=== PATIENT | male | born 1960 | race Caucasian/White ===

== ENCOUNTER → 2016-10-21 | Outpatient (CLI) | payer BC ==
[~2016-10-21] MED LIST: APIX1TAB3 PO; METO25TA3 PO; OPTIRAY 320 IV PRN
--- NOTE | 2016-10-21 11:27 | DIAGNOSTIC IMAGING REPORT ---
CT PELVIS W/IV AND ORAL CONT (CT) CT DOSE: 803.50 mGy.cm CLINICAL HISTORY: PELVIC AND PERINEAL PAIN TECHNIQUE: The patient was scanned following administration of dilute oral contrast, and in a dynamic helical fashion during intravenous administration of 119 cc of Optiray 320. A dose lowering technique was utilized adhering to the principles of ALARA. COMPARISON STUDY: November 21, 2012 FINDINGS: The appendix appears normal. There is extensive sigmoid diverticulosis. No acute peridiverticular inflammatory changes are visualized. There is fat-containing bilateral inguinal hernias. There are no abnormal pelvic masses. There are no fluid collections to indicate an abscess. There is no pathologic adenopathy. There is no evidence of a perirectal abscess. IMPRESSION: 1. Bilateral fat-containing inguinal hernias 2. No acute inflammatory changes. No pathologic masses. No evidence of adenopathy. 3. Extensive sigmoid diverticulosis. No evidence of acute peridiverticular inflammatory change Electronically signed by: Eduar Flores M.D. 10/21/2016 11:26 AM Dictated Date/Time: 10/21/2016 11:22 AM
== END | disposition home or self-care (01) ==
LOC: C.CTS 10:58
PROVIDERS: ATTEND Family Medicine
DX: K40.90 Unilateral inguinal hernia, without obstruction or gangrene, not specified as recurrent (principal); K57.30 Diverticulosis of large intestine without perforation or abscess without bleeding

== ENCOUNTER 2020-01-06 08:53 | Inpatient (IN) ==
--- NOTE | 2020-01-06 09:28 | Emergency Department Note ---
History of Present Illness General Chief complaint: Shortness of Breath/Dyspnea Stated complaint: + COVID, INCREASED SOB, HX OF AFIB Time Seen by Provider: 01/06/20 09:04 History of Present Illness Maximum Pain Intensity: 5 This is a 59-year-old male that presents to the emergency department via private vehicle with complaints of "Covid positive, increased shortness of breath, history of A. fib". The patient notes that starting December 25 he began with a runny nose and dry cough. Patient notes persistence of symptoms and overall has been doing quite well. His symptoms seem to worsen therefore prompting arrival here in the ED last night where he underwent work-up to include that of a CTA of the chest. I did review the over read by radiologist in house. This conformed to the likely viral pneumonia that is likely from COVID-19. The patient did clarify that he has yet to had a COVID-19 positive result noting that he had a test on December 27 that was negative however is pending test results from a test this past Wednesday. The patient notes that he was here and feeling much better when he went home and then as he went to go to sleep he noted that he believes he went into A. fib which she has a history of noting that the heart felt like it was beating irregularly and was able to go to sleep. He then notes that he woke up gasping for air and felt like he was going to pass out and was concerned that he might . He took a double dose of metoprolol that he was prescribed that seemed to help the symptoms and then prompted arrival here today. Overall discomfort is a 5/10. He notes some mild burning in the chest and cough but no true chest pain. He has been compliant with his medications. Home Medications Medication Instructions Recorded Confirmed Type apixaban 5 mg tablet 5 mg PO BID #180 tab 07/18/19 01/06/20 Rx flecainide 100 mg tablet 100 mg PO Q12H #180 tab 07/20/19 01/06/20 Rx metoprolol succinate 50 mg PO BID 01/06/20 01/06/20 History Allergies Allergy/AdvReac Type Severity Reaction Status Date / Time chlorhexidine Allergy Intermediate RASH AND Verified 01/06/20 09:54 ITCHING latex Allergy Unknown RASH Verified 01/06/20 09:54 Past Med/Surg History Medical History (Updated 01/06/20 @ 16:36 by Andrew Villalpando PA-C) Diverticular disease Hypertension Obesity Paroxysmal A-fib Rare documented episodes. [id number] is 1. Per cardio 09/14/17 "With rare episodes of atrial fibrillation and no ability to predict when they might recur I do not think I need to see him regularly, however if he has recurrence I have advised him to contact us and we may want to reevaluate things. I therefore not scheduled him for routine follow-up visit." Surgical History History of cholecystectomy History of herniorrhaphy UMBILICAL History of herniorrhaphy Social History Smoking Status: Former smoker Tobacco Type: Cigarettes Second Hand Exposure: Yes (ON OCC AT WORK); Hx Alcohol Use: No Hx Substance Use: No Preferred Language: Zambian Communication Ability: Effective Senior Technical Project Manager Required: No Beliefs That Will Affect Care: None Current Living Situation: Spouse Feels Safe at Home: Yes Assistive Devices: Glasses Review of Systems A total of 10 systems reviewed and were otherwise negative Physical Exam Vital Signs Vital Signs - 24 hr 01/06/20 08:57 01/06/20 09:42 01/06/20 09:43 Temperature 36.7 C Temperature Source Oral Pulse Rate 82 Pulse Rate [Apical] Pulse Rate from SpO2 Sensor Pulse Rhythm [Apical] Respiratory Rate 18 Respiratory Effort / Characteristics Non-Labored Spontaneous Respiratory Depth Normal Respiratory Pattern Regular Blood Pressure 153/85 H Blood Pressure Mean 107 Blood Pressure Position Sitting Pulse Oximetry 93 93 94 Oxygen Delivery Method Room Air Room Air Room Air Oxygen Flow Rate Sepsis Recent Fever Within 48 Hours No Sepsis New/Unexplained Change in Mental Status N/A Sepsis Action Taken by Nursing No Action Required Oxygen Flow Rate - Titration Pulse Oximetry Post Tiitration 01/06/20 09:45 01/06/20 10:00 01/06/20 10:30 Temperature Temperature Source Pulse Rate 80 82 77 Pulse Rate [Apical] Pulse Rate from SpO2 Sensor 80 82 77 Pulse Rhythm [Apical] Respiratory Rate 26 H 18 23 Respiratory Effort / Characteristics Respiratory Depth Respiratory Pattern Blood Pressure 149/87 H 143/79 H 154/86 H Blood Pressure Mean 114 88 94 Blood Pressure Position Pulse Oximetry 91 90 92 Oxygen Delivery Method Room Air Room Air Room Air Oxygen Flow Rate Sepsis Recent Fever Within 48 Hours Sepsis New/Unexplained Change in Mental Status Sepsis Action Taken by Nursing Oxygen Flow Rate - Titration Pulse Oximetry Post Tiitration 01/06/20 11:00 01/06/20 11:30 01/06/20 11:54 Temperature Temperature Source Pulse Rate 77 78 Pulse Rate [Apical] Pulse Rate from SpO2 Sensor 77 78 Pulse Rhythm [Apical] Respiratory Rate 21 26 H Respiratory Effort / Characteristics Respiratory Depth Respiratory Pattern Blood Pressure 142/78 H 143/91 H Blood Pressure Mean 92 104 Blood Pressure Position Pulse Oximetry 92 91 90 Oxygen Delivery Method Nasal Cannula Oxygen Flow Rate 0 Sepsis Recent Fever Within 48 Hours Sepsis New/Unexplained Change in Mental Status Sepsis Action Taken by Nursing Oxygen Flow Rate - Titration 2 Pulse Oximetry Post Tiitration 94 01/06/20 12:00 01/06/20 12:01 01/06/20 12:30 Temperature Temperature Source Pulse Rate 74 73 74 Pulse Rate [Apical] Pulse Rate from SpO2 Sensor 74 73 74 Pulse Rhythm [Apical] Respiratory Rate 22 17 24 Respiratory Effort / Characteristics Respiratory Depth Respiratory Pattern Blood Pressure 137/104 H 149/90 H Blood Pressure Mean 113 95 Blood Pressure Position Pulse Oximetry 93 94 92 Oxygen Delivery Method Nasal Cannula Nasal Cannula Nasal Cannula Oxygen Flow Rate 2 2 2 Sepsis Recent Fever Within 48 Hours Sepsis New/Unexplained Change in Mental Status Sepsis Action Taken by Nursing Oxygen Flow Rate - Titration Pulse Oximetry Post Tiitration 01/06/20 12:31 01/06/20 13:00 01/06/20 13:33 Temperature Temperature Source Pulse Rate 74 74 Pulse Rate [Apical] Pulse Rate from SpO2 Sensor 74 74 80 Pulse Rhythm [Apical] Respiratory Rate 22 21 20 Respiratory Effort / Characteristics Respiratory Depth Respiratory Pattern Blood Pressure 146/85 H Blood Pressure Mean 90 Blood Pressure Position Pulse Oximetry 92 93 Oxygen Delivery Method Nasal Cannula Oxygen Flow Rate 2 Sepsis Recent Fever Within 48 Hours Sepsis New/Unexplained Change in Mental Status Sepsis Action Taken by Nursing Oxygen Flow Rate - Titration Pulse Oximetry Post Tiitration 01/06/20 13:49 01/06/20 13:50 01/06/20 14:00 Temperature Temperature Source Pulse Rate 76 Pulse Rate [Apical] 78 Pulse Rate from SpO2 Sensor 77 Pulse Rhythm [Apical] Regular Respiratory Rate 18 Respiratory Effort / Characteristics Respiratory Depth Respiratory Pattern Blood Pressure 173/93 H Blood Pressure Mean 106 Blood Pressure Position Pulse Oximetry 88 L 94 93 Oxygen Delivery Method Room Air Nasal Cannula Oxygen Flow Rate 2 Sepsis Recent Fever Within 48 Hours Sepsis New/Unexplained Change in Mental Status Sepsis Action Taken by Nursing Oxygen Flow Rate - Titration Pulse Oximetry Post Tiitration 01/06/20 14:30 01/06/20 14:31 Temperature Temperature Source Pulse Rate 78 79 Pulse Rate [Apical] Pulse Rate from SpO2 Sensor 77 79 Pulse Rhythm [Apical] Respiratory Rate 23 19 Respiratory Effort / Characteristics Respiratory Depth Respiratory Pattern Blood Pressure 126/78 Blood Pressure Mean 90 Blood Pressure Position Pulse Oximetry 92 92 Oxygen Delivery Method Nasal Cannula Nasal Cannula Oxygen Flow Rate 2 2 Sepsis Recent Fever Within 48 Hours Sepsis New/Unexplained Change in Mental Status Sepsis Action Taken by Nursing Oxygen Flow Rate - Titration Pulse Oximetry Post Tiitration VITAL SIGNS - Vital signs and nursing notes were reviewed. Stable and afebrile. GENERAL -59-year-old male appearing his stated age who is in no acute distress. Communicates well with provider and answers questions appropriately. SKIN - Without rashes. No meningeal or petechial rash. HEAD - NC/AT. NECK - Neck with FROM. Supple to palpation. No lymphadenopathy noted. No nuchal rigidity. LUNGS - Chest wall symmetric without accessory muscle use, intercostals retractions, or central cyanosis. Normal vesicular breath sounds CTA B/L. No wheezes, rales, or rhonchi appreciated. CARDIAC - RRR with S1/S2. No murmur, rubs, or gallops appreciated. ABDOMEN - Abdominal contour normal without pulsations or visible masses. BS normoactive all four quadrants. No tenderness, palpable masses, hepatospleno megaly, or ascites noted. EXTREMITIES - No clubbing or peripheral cyanosis. No pretibial edema present. +5/5 strength noted in UE/LE bilaterally. NEUROLOGIC - Cranial nerves II through XII grossly intact. Sensory intact to light touch throughout. PSYCH - A&O, and cooperates fully with examiner. Pt is very pleasant and interacts well with examiner. Course Administered Medications Discontinued Medications Dexamethasone (Dexamethasone Sod Inj 10 Mg/Ml Vial) 6 mg IV NOW ONE Stop: 01/06/20 11:37 Last Admin: 01/06/20 11:55 Dose: 6 mg Documented by: [id number] Hydralazine HCl (Hydralazine Hcl 20 Mg/Ml Vial) 5 mg IV NOW STA Stop: 01/06/20 15:16 Last Admin: 01/06/20 16:07 Dose: 5 mg Documented by: [id number] Potassium Chloride (Potassium Chloride Crtab 20 Meq Tabcr) 20 meq PO NOW STA Stop: 01/06/20 15:12 Last Admin: 01/06/20 16:06 Dose: 20 meq Documented by: [id number] Medical Decision Making Laboratory Data Result diagrams: 01/06/20 09:40 01/06/20 09:40 Lab Results 01/06/20 01/06/20 01/06/20 Range/Units 09:40 09:40 11:56 WBC 4.08 L (4.8-10.8) K/uL RBC 4.83 (4.7-6.1) M/uL Hgb 15.1 (14.0-18.0) g/dL Hct 44.9 (42-52) % MCV 93.0 (80-100) fL MCH 31.3 (25-34) pg MCHC 33.6 (32-36) g/dL RDW Std Deviation 45.9 (36.4-46.3) fL RDW Coeff of Victor Hugo 13.4 (11.5-14.5) % Plt Count 146 (130-400) K/uL MPV 9.7 (7.4-10.4) fL Immature Gran % (Auto) 0.2 % Neut % (Auto) 72.4 % Lymph % (Auto) 19.1 % Wilkinson % (Auto) 8.1 % Eos % (Auto) 0.2 % Baso % (Auto) 0.0 % Neut # (Auto) 2.95 (1.4-6.5) K/uL Lymph # (Auto) 0.78 L (1.2-3.4) K/uL Wilkinson # (Auto) 0.33 (0.11-0.59) K/uL Eos # (Auto) 0.01 (0-0.5) K/uL Baso # (Auto) 0.00 (0-0.2) K/uL Immature Gran # (Auto) 0.01 (0.00-0.02) K/uL Sodium 140 (136-145) mmol/L Potassium 3.4 L (3.5-5.1) mmol/L Chloride 109 H (98-107) mmol/L Carbon Dioxide 25 (21-32) mmol/L Anion Gap 6.0 (3-11) BUN 17 (7-18) mg/dl Creatinine 0.88 (0.6-1.4) mg/dl Est Cr Clr Drug Dosing 128.9 ml/min Est GFR ( Amer) 110.5 Est GFR (Non-Af Amer) 95.4 BUN/Creatinine Ratio 19.5 (10-20) Glucose 121 H (70-99) mg/dl Calcium 8.8 (8.5-10.1) mg/dl Magnesium 1.9 (1.8-2.4) mg/dl Total Bilirubin 0.7 (0.2-1) mg/dl AST 81 H (15-37) U/L ALT 122 H (12-78) U/L Alkaline Phosphatase 109 (45-117) U/L Troponin I < 0.015 (0-0.045) ng/ml Total Protein 7.2 (6.4-8.2) gm/dl Albumin 3.5 (3.4-5.0) gm/dl Globulin 3.7 (2.5-4.0) gm/dl Albumin/Globulin Ratio 0.9 (0.9-2) TSH 1.910 (0.300-4.500) uIu/ml COVID-19 Eval [email or web address] SARS-CoV-2, RNA, NAAT (NEGATIVE) 01/06/20 Range/Units 11:56 WBC (4.8-10.8) K/uL RBC (4.7-6.1) M/uL Hgb (14.0-18.0) g/dL Hct (42-52) % MCV (80-100) fL MCH (25-34) pg MCHC (32-36) g/dL RDW Std Deviation (36.4-46.3) fL RDW Coeff of Victor Hugo (11.5-14.5) % Plt Count (130-400) K/uL MPV (7.4-10.4) fL Immature Gran % (Auto) % Neut % (Auto) % Lymph % (Auto) % Wilkinson % (Auto) % Eos % (Auto) % Baso % (Auto) % Neut # (Auto) (1.4-6.5) K/uL Lymph # (Auto) (1.2-3.4) K/uL Wilkinson # (Auto) (0.11-0.59) K/uL Eos # (Auto) (0-0.5) K/uL Baso # (Auto) (0-0.2) K/uL Immature Gran # (Auto) (0.00-0.02) K/uL Sodium (136-145) mmol/L Potassium (3.5-5.1) mmol/L Chloride (98-107) mmol/L Carbon Dioxide (21-32) mmol/L Anion Gap (3-11) BUN (7-18) mg/dl Creatinine (0.6-1.4) mg/dl Est Cr Clr Drug Dosing ml/min Est GFR ( Amer) Est GFR (Non-Af Amer) BUN/Creatinine Ratio (10-20) Glucose (70-99) mg/dl Calcium (8.5-10.1) mg/dl Magnesium (1.8-2.4) mg/dl Total Bilirubin (0.2-1) mg/dl AST (15-37) U/L ALT (12-78) U/L Alkaline Phosphatase (45-117) U/L Troponin I (0-0.045) ng/ml Total Protein (6.4-8.2) gm/dl Albumin (3.4-5.0) gm/dl Globulin (2.5-4.0) gm/dl Albumin/Globulin Ratio (0.9-2) TSH (0.300-4.500) uIu/ml COVID-19 Eval Order SARS-CoV-2, RNA, NAAT POSITIVE A* (NEGATIVE) Imaging Data Radiologist's Impression: CT angio chest PE protocol CT DOSE: 769.10 mGy.cm HISTORY: 59 years-old Male with PE. Acute shortness of breath. COVID Positive. TECHNIQUE: Multiple CTA images of the chest were obtained after the intravenous administration of 118 ml Optiray 320. Coronal and sagittal MIPS were obtained from the axial data set and were submitted for review. All measurements were obtained according to NASCET criteria. A dose lowering technique was utilized adhering to the principles of ALARA. COMPARISON: Chest radiograph of same day, CT chest 10/06/2007 FINDINGS: CTA: Mild cardiomegaly. There is no pericardial effusion. No thoracic aortic aneurysm or dissection. Patency of the imaged great vessels. The pulmonary artery is opacified to the level of the subsegmental branches and demonstrates no filling defects to suggest thromboembolic disease. CT CHEST: Unremarkable thyroid. Mildly enlarged AP window lymph node, 12 mm. Prominent paratracheal and subcarinal lymph nodes measure up to 9 mm, likely reactive. There is no pneumothorax or pleural effusion. No overt pulmonary edema. 6 mm solid nodule of the right middle lobe, image 139 series 4 previously measured 4 mm on the 2018 exam. This is likely benign. Patchy bilateral groundglass opacities are noted within all lobes bilaterally. These are noted in a somewhat mid lung zone and peripheral distribution. Mild linear subsegmental bibasilar atelectasis. No suspicious pulmonary nodules or masses. The central airways are patent. Cholecystectomy. Hepatic steatosis. Indeterminate ill-defined 9 mm hypodensity of the right hepatic lobe. Unremarkable soft tissues. Bones appear intact. No acute fracture. IMPRESSION: 1. No evidence of pulmonary thromboembolic disease. 2. Patchy multilobar groundglass densities are compatible with a nonspecific infectious or inflammatory pneumonitis, likely acute viral pneumonia considering patient's COVID Positive status. 3. Mild mediastinal adenopathy, likely reactive. 4. Hepatic steatosis. 5. Cholecystectomy. ACT 112: Negative or not required by law. The above report was generated using voice recognition software. It may contain grammatical, syntax or spelling errors. Electronically signed by: Derrell Ray M.D. 01/06/2020 9:17 AM MDM Narrative Patient was seen and evaluated as above in room C06. Review was performed of nursing notes and vital signs. I did review pertinent previous visits and patient history. After obtaining a thorough history and physical examination the above work up was performed. He presents to us today with symptoms suspicious for that of COVID-19 and was recently here in the ED for evaluation of the symptoms. The patient did undergo a CTA of the chest and this was read initially by stat rad and I do have the report as above by the in-house radiology that was just read. I do not believe that repeating a CT at this time would be of any benefit. There is no evidence of PE. There is patchy multilobar groundglass densities are compatible with a nonspecific infectious or inflammatory pneumonitis, likely acute viral pneumonia considering patient's Covid status. Although the patient has yet to have a positive COVID-19 test clinically I would suspect that his symptoms are from such. The CTA also does appear consistent with likely the viral pneumonia on my examination. The patient notes that the main reason he is here is because when he went to bed after being discharged here and he felt that he was in A. fib which is rare for him and then when he woke up he states that the heart rate was erratic and he notes that he was gasping for breath, felt dizzy and thought he might pass out and he was worried about dying therefore prompting arrival here. The patient is anticoagulated on apixaban, and for the A. fib is on flecainide and metoprolol. As reported above, he did take a double dose of metoprolol which greatly seem to improve his symptoms and now he notes that he is feeling much better but w anted to be evaluated. Vital signs are stable at this time. He is nontoxic on examination. The patient was evaluated by the hospitalist noting he does not feel comfortable going home secondary to his symptoms. Patient is worried about going home. Patient feels safe in his home but not with his current symptoms. I respect this and discussed this with the hospitalist. The initial plan by the hospitalist was for discharge however when I went to discuss this with the patient he was noted to be hypoxic 87% on room air. I placed him back on oxygen and discussed this with the hospitalist who will admit the patient further evaluation and management. I did start the patient on IV dexamethasone. Please refer to further documentation regarding his stay. Patient was seen during a period of high volume and acuity during the COVID-19 pandemic. Case was discussed with the attending physician. EKG #1 reveals normal sinus rhythm at a rate of 80 bpm. There is no ST elevation. T WI noted in lead III as well as V1 and flattening noted in V3. No significant change was found compared to previous EKG. EKG #2 reveals what appears to be a sinus rhythm with frequent PAC/PVC. This is at a rate of [address] bpm. QTc 520[address] No ST elevation. An order was placed for continuous cardiac monitoring. The monitor shows a rate of 90 with sinus rhythm. I attest that I have personally reviewed the patient medication list. GCS: 15 In the evaluation and treatment of this patient the following differential diagnoses were entertained: Pneumonia, [place], PE, pericarditis, COVID-19, among others. Impression & Plan COVID-19, Racing heart beat, Acute dyspnea, Pneumonia due to COVID-19 virus Discharge Plan Visit Data Chief Complaint: Shortness of Breath/Dyspnea Stated Complaint: + COVID, INCREASED SOB, HX OF AFIB ED Provider: Eugene Boo ED Midlevel Provider: Andrew Villalpando Discharge Problem: COVID-19, Racing heart beat, Acute dyspnea, Pneumonia due to COVID-19 virus Patient Disposition: Admitted As Inpatient Condition: Good
[2020-01-06 09:52] LABS: Eosinophils # (auto) 0.01 K/uL (0-0.5); Eosinophils % (auto) 0.2 %; Hematocrit (blood only) 44.9 % (42-52); Hemoglobin 15.1 g/dL (14.0-18.0); Immature Granulocytes # (auto) 0.01 K/uL (0.00-0.02); Immature Granulocytes % (auto) 0.2 %; Lymphocytes # (auto) 0.78 K/uL (1.2-3.4); Lymphocytes % (auto) 19.1 %; Mean Corpuscular Hemoglobin 31.3 pg (25-34); Mean Corpuscular Hgb Conc 33.6 g/dL (32-36); Mean Platelet Volume 9.7 fL (7.4-10.4); Monocytes # (auto) 0.33 K/uL (0.11-0.59); Monocytes % (auto) 8.1 %; Neutrophils # (auto) 2.95 K/uL (1.4-6.5); Neutrophils % (auto) 72.4 %; Platelet Count 146 K/uL (130-400); RDW Coefficient of Variation 13.4 % (11.5-14.5); RDW Standard Deviation 45.9 fL (36.4-46.3); Red Blood Count 4.83 M/uL (4.7-6.1); White Blood Count 4.08 K/uL (4.8-10.8)
[2020-01-06 10:08] LABS: Alanine Aminotransferase 122 U/L (12-78); Albumin Level 3.5 gm/dl (3.4-5.0); Aspartate Aminotransferase 81 U/L (15-37); BUN Creatinine Ratio 19.5 (10-20); Blood Urea Nitrogen 17 mg/dl (7-18); Calcium 8.8 mg/dl (8.5-10.1); Carbon Dioxide 25 mmol/L (21-32); Chloride 109 mmol/L (98-107); Creatinine Clr Calc Pharmacy 128.9 ml/min; Est GFR (African American) 110.5; Est GFR (Non-African American) 95.4; Glucose 121 mg/dl (70-99); Magnesium 1.9 mg/dl (1.8-2.4); Potassium 3.4 mmol/L (3.5-5.1); Sodium 140 mmol/L (136-145)
[2020-01-06 10:19] LABS: Albumin Globulin Ratio 0.9 (0.9-2); Alkaline Phosphatase 109 U/L (45-117); Bilirubin,Total 0.7 mg/dl (0.2-1); Globulin 3.7 gm/dl (2.5-4.0); Total Protein 7.2 gm/dl (6.4-8.2); Troponin I < 0.015 ng/ml (0-0.045)
--- NOTE | 2020-01-06 11:35 | Electrocardiogram Report ---
Test Reason : Blood Pressure : / mmHG Vent. Rate : 080 BPM Atrial Rate : 080 BPM P-R Int : 196 ms QRS Dur : 112 ms QT Int : 404 ms P-R-T Axes : 027 015 -05 degrees QTc Int : 465 ms Normal sinus rhythm Old Inferior infarct (cited on or before 06-JAN-2020) Poor R wave progression, consider anterior NM vs. lead placement vs. LVH Abnormal ECG When compared with ECG of 06-JAN-2020 00:16, No significant change was found Confirmed by Luis Felipe Hoover [id number] on 01/06/2020 11:34:43 AM Referred By: REFERRED SELF Confirmed By:Luis Felipe Hoover
[2020-01-06] MEDS ORDERED: DEXAMETHASONE SOD INJ 10 MG/ML VIAL IV ONE (11:36)
--- NOTE | 2020-01-06 12:24 | History & Physical Report ---
Date of Service January 06, 2020 Assessment & Plan (1) Pneumonia due to COVID-19 virus: Dexamethasone 6mg IV daily Initially planned to send patient home as borderline hypoxia and episodes of shortness of breath more likely related to atrial fibrillation. However became more hypoxic in the ER therefore patient admitted overnight, if still significantly hypoxic could consider remdesivir and convalescent plasma although approximately 10 days from original symptoms at this time. (2) Hypoxia: Aim O2 sats > 94% (3) Paroxysmal A-fib: Increase metoprolol succinate 50 -> 100mg PO BID Continue flecainide Discontinue albuterol as this triggered his episodes overnight. Consult cardiology - discussed case with Dr Hoover (4) Hypertension: Continue flecainide and increased dose of metoprolol succinate as above and monitor for hypotension. (5) Obesity: (6) Elevated LFTs: Hepatic steatosis on CT. ?secondary to COVID-19. Stable since last night. Monitor with AM labs Unknown baseline. Prior history of chronic cholecystitis but now had cholecystectomy - no RUQ pain on exam. (7) DVT prophylaxis: Apixaban 5 mg p.o. twice daily Admission and Anticipated Discharge Date Admission Date: 01/06/2020 History of Present Illness Primary Care Provider: Thomas Gillespie MD Gilles Dowell is a 59-year-old male who presents to the ER with increased shortness of breath after recent diagnosis of Covid positive last night. He has been symptomatic for approximately 10 days although much worse over the last 4 days. Approximately 7 days ago he noticed fevers and chills which have been recurring and worse at night. He has lost his taste and smell for the last 6 days. Mild nasal congestion. Initially had a headache but this resolved 2 days ago. No abdominal pain, chest pain (outside of coughing, burning when he coughs), diarrhea, sore throat. He presented to the ER last night with mild wheezing and shortness of breath. Subsequent SARS-CoV-2 PCR was positive. He was discharged home from the emergency room with borderline O2 sats of 93%. He was given an albuterol inhaler which he reports did not help but may have triggered his atrial fibrillation which caused him to feel very short of breath this morning. Due to increased shortness of breath with associated palpitations he decided to return to the ER today. Currently he is not feeling short of breath after doubling his metoprolol dose this morning he is now back into normal sinus rhythm. He has noticed his atrial fibrillation has been more prominent during his current illness. No adjustments to his medications will be made except for this morning taking an extra dose of metoprolol. When he is outside his atrial fibrillation episodes, such as currently in the ER he does not feel short of breath. No orthopnea or PND. Initially plan to discharge home as shortness of breath episodes appear to correlate with his atrial fibrillation. Discussed with Dr. Hoover and will increase his metoprolol dose. However while in the emergency room his O2 sats decreased from borderline 93% to 88% on room air and the patient did not feel comfortable going home. Given his current hypoxia he meets criteria to be admitted in hospital. Allergies Allergy/AdvReac Type Severity Reaction Status Date / Time chlorhexidine Allergy Intermediate RASH AND Verified 01/06/20 09:54 ITCHING latex Allergy Unknown RASH Verified 01/06/20 09:54 Home Medications Medication Instructions Recorded Confirmed Type apixaban 5 mg tablet 5 mg PO BID #180 tab 07/18/19 01/06/20 Rx flecainide 100 mg tablet 100 mg PO Q12H #180 tab 07/20/19 01/06/20 Rx metoprolol succinate 50 mg PO BID 01/06/20 01/06/20 History Past Med/Surg History Medical History (Updated 01/07/20 @ 10:50 by Dave Polk MD) Diverticular disease Hypertension Obesity Paroxysmal A-fib Rare documented episodes. [id number] is 1. Per cardio 09/14/17 "With rare episodes of atrial fibrillation and no ability to predict when they might recur I do not think I need to see him regularly, however if he has recurrence I have advised him to contact us and we may want to reevaluate things. I therefore not scheduled him for routine follow-up visit." Surgical History History of cholecystectomy History of herniorrhaphy UMBILICAL History of herniorrhaphy Social History Smoking Status: Former smoker Tobacco Type: Cigarettes Second Hand Exposure: Yes (ON OCC AT WORK); Hx Alcohol Use: No Hx Substance Use: No Preferred Language: Kiswahili Communication Ability: Effective Junior Mechanical Engineer Required: No Beliefs That Will Affect Care: None Current Living Situation: Spouse Current Living Situation Comment: with Other Information That Helps Us Care for You: No Feels Safe at Home: Yes Safety Concerns: Feels Safe At This Time Assistive Devices: Glasses and Oxygen - Continuous Review of Systems Review of Systems: All systems reviewed & are unremarkable except as noted in HPI & below Physical Exam Constitutional: well developed and + obese; + not well nourished and no acute distress Eyes: + anicteric sclerae; normal pupil size Respiratory: normal respiratory effort Auscultation: lungs clear to auscultation bilaterally (Anteriorly) and + crackles (Bilaterally posteriorly); no diminished lung sounds, no rales, no rhonchi and no wheezes Cardiovascular: Rate/Rhythm: regular rate and regular rhythm Heart Sounds: no murmur Vessels: no JVD Extremities: normal capillary refill; no calf tenderness and no pedal edema Gastrointestinal (Abdomen): normal bowel sounds, soft, nontender, no hepatosplenomegaly Musculoskeletal: no cyanosis or clubbing, extremities motor strength 5/5 Skin: no rashes, warm and dry Neurologic: moves all extremities and awake; not confused Psychiatric: A+Ox3, euthymic affect Genitourinary: no CVA tenderness Results & Data Results & Data ([facility]) Vital Signs (Past 12 Hours) Vital Signs Temp Pulse Resp BP Pulse Ox 01/06/20 11:54 90 01/06/20 11:30 78 26 H 143/91 H 91 01/06/20 11:00 77 21 142/78 H 92 01/06/20 10:30 77 23 154/86 H 92 01/06/20 10:00 82 18 143/79 H 90 01/06/20 09:45 80 26 H 149/87 H 91 01/06/20 09:43 94 01/06/20 09:42 93 01/06/20 08:57 36.7 C 82 18 153/85 H 93 Diagnostic Findings XR chest 1V portable IMPRESSION: Patchy bilateral peripheral opacities are compatible with a nonspecific infectious or inflammatory pneumonitis such as viral pneumonia. CT angio chest PE protocol IMPRESSION: 1. No evidence of pulmonary thromboembolic disease. 2. Patchy multilobar groundglass densities are compatible with a nonspecific infectious or inflammatory pneumonitis, likely acute viral pneumonia considering patient's COVID Positive status. 3. Mild mediastinal adenopathy, likely reactive. 4. Hepatic steatosis. 5. Cholecystectomy. Medications Administered ER medications given: Dexamethasone 6 mg IV ECG Indication: SOB/dyspnea Rate (beats per minute): 89 Rhythm: normal sinus Findings: + PAC Comparison ECG Date: from (January 06, 2020) Change: the following changes noted (PACs present) Code Status & VTE Plan Code Status Full VTE Prophylaxis Plan VTE Prophylaxis will be ordered: Yes PG Care Time/CCT Total # of Minutes Spent Total Time Spent: 70 Total Time Spent with Patient: Total time spent is greater than 50% in coordination of care (as documented) at patient's floor/unit and/or counseling patient: Coding Level of Care Code 36113 Initial Inpt Care Lvl 3 Diagnoses Pneumonia due to COVID-19 virus U07.1; J12.89 Hypoxia R09.02 Paroxysmal A-fib I48.0 Hypertension I10 Obesity E66.9 Elevated LFTs R79.89 DVT prophylaxis Z29.9
[2020-01-06] MEDS ORDERED: POTASSIUM CHLORIDE CRTAB 20 MEQ TABCR PO STA (15:11)
[2020-01-06] MEDS ORDERED: hydrALAZINE HCL 20 MG/ML VIAL IV STA (15:15)
[2020-01-06] MEDS ORDERED: hydrALAZINE HCL 20 MG/ML VIAL IV PRN (18:30)
[2020-01-06] MEDS ORDERED: ACETAMINOPHEN 325 MG TAB PO PRN (18:30)
[2020-01-06] MEDS: METOPROLOL SUCC 50MG EXT REL TAB PO SCH (20:11)
[2020-01-06] MEDS: FLECAINIDE ACETATE 100 MG TABLET PO SCH (20:30)
[2020-01-06] MEDS: APIXABAN 5 MG TABLET PO SCH (20:30)
[2020-01-07] MEDS: METOPROLOL SUCC 50MG EXT REL TAB PO SCH (07:15)
[2020-01-07] MEDS: FLECAINIDE ACETATE 100 MG TABLET PO SCH (07:15)
[2020-01-07] MEDS: APIXABAN 5 MG TABLET PO SCH (07:15)
[2020-01-07 08:14] LABS: Hematocrit (blood only) 46.1 % (42-52); Hemoglobin 15.5 g/dL (14.0-18.0); Lymphocytes % (auto) 12.9 %; Mean Corpuscular Hemoglobin 31.2 pg (25-34); Mean Corpuscular Hgb Conc 33.6 g/dL (32-36); Mean Corpuscular Volume 92.8 fL (80-100); Monocytes # (auto) 0.39 K/uL (0.11-0.59); Monocytes % (auto) 6.3 %; Neutrophils # (auto) 4.99 K/uL (1.4-6.5); Neutrophils % (auto) 80.8 %; Platelet Count 168 K/uL (130-400); RDW Coefficient of Variation 13.3 % (11.5-14.5); RDW Standard Deviation 45.3 fL (36.4-46.3); Red Blood Count 4.97 M/uL (4.7-6.1); White Blood Count 6.18 K/uL (4.8-10.8)
[2020-01-07 08:28] LABS: D Dimer 230 ug/L FEU (0-500)
[2020-01-07 08:31] LABS: Alanine Aminotransferase 120 U/L (12-78); Albumin Level 3.4 gm/dl (3.4-5.0); Aspartate Aminotransferase 66 U/L (15-37); BUN Creatinine Ratio 28.8 (10-20); Blood Urea Nitrogen 25 mg/dl (7-18); C Reactive Protein 5.23 mg/dl (0-0.29); Calcium 9.3 mg/dl (8.5-10.1); Carbon Dioxide 24 mmol/L (21-32); Chloride 107 mmol/L (98-107); Creatinine Clr Calc Pharmacy 129.9 ml/min; Est GFR (African American) 111.6; Est GFR (Non-African American) 96.3; Glucose 124 mg/dl (70-99); Potassium 3.6 mmol/L (3.5-5.1); Sodium 139 mmol/L (136-145)
[2020-01-07 08:36] LABS: Albumin Globulin Ratio 0.9 (0.9-2); Alkaline Phosphatase 115 U/L (45-117); Bilirubin,Total 0.8 mg/dl (0.2-1); Creatine Kinase 140 U/L (39-308); Globulin 3.7 gm/dl (2.5-4.0); Total Protein 7.1 gm/dl (6.4-8.2); Troponin I < 0.015 ng/ml (0-0.045)
--- NOTE | 2020-01-07 08:55 | Electrocardiogram Report ---
Test Reason : Blood Pressure : / mmHG Vent. 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 lead placement vs. LVH Abnormal ECG When compared with ECG of 06-JAN-2020 09:36, Aberrantly conducted PACs now present Confirmed by Luis Felipe oHover ([id number]) on 01/07/2020 8:54:54 AM Referred By: REFERRED SELF Confirmed By:Luis Felipe Hoover
[2020-01-07] MEDS ORDERED: dexAMETHasone 6 MG in SYRINGE 0 ML IV SCH (09:00)
--- NOTE | 2020-01-07 14:27 | Discharge Summary ---
Date of Service January 07, 2020 Admission HPI Per Admitting Provider Gilles Dowell is a 59-year-old male who presents to the ER with increased shortness of breath after recent diagnosis of Covid positive last night. He has been symptomatic for approximately 10 days although much worse over the last 4 days. Approximately 7 days ago he noticed fevers and chills which have been recurring and worse at night. He has lost his taste and smell for the last 6 days. Mild nasal congestion. Initially had a headache but this resolved 2 days ago. No abdominal pain, chest pain (outside of coughing, burning when he coughs), diarrhea, sore throat. He presented to the ER last night with mild wheezing and shortness of breath. Subsequent SARS-CoV-2 PCR was positive. He was discharged home from the emergency room with borderline O2 sats of 93%. He was given an albuterol inhaler which he reports did not help but may have triggered his atrial fibrillation which caused him to feel very short of breath this morning. Due to increased shortness of breath with associated palpitations he decided to return to the ER today. Currently he is not feeling short of breath after doubling his metoprolol dose this morning he is now back into normal sinus rhythm. He has noticed his atrial fibrillation has been more prominent during his current illness. No adjustments to his medications will be made except for this morning taking an extra dose of metoprolol. When he is outside his atrial fibrillation episodes, such as currently in the ER he does not feel short of breath. No orthopnea or PND. Initially plan to discharge home as shortness of breath episodes appear to correlate with his atrial fibrillation. Discussed with Dr. Hoover and will increase his metoprolol dose. However while in the emergency room his O2 sats decreased from borderline 93% to 88% on room air and the patient did not feel comfortable going home. Given his current hypoxia he meets criteria to be admitted in hospital. Principal Diagnosis Atrial fibrillation with RVR Discharge Exam Constitutional WD/WN, vitals as above + overweight Eyes PERRL, conjunctivae normal, anicteric sclerae ENMT external ear and nose normal, oropharynx normal Neck trachea midline, no thyromegaly Respiratory normal respiratory effort, lungs clear to auscultation Cardiovascular RRR, no murmur, no edema Gastrointestinal (Abdomen) normal bowel sounds, soft, nontender, no hepatosplenomegaly Musculoskeletal no cyanosis or clubbing, extremities motor strength 5/5 Skin no rashes, warm and dry Neurologic patellar DTR's 2+ bilat, sensation intact and PERRL, EOMI, accommodation nl, no face palsy, no dysarthria Psychiatric A+Ox3, euthymic affect Lymphatic no cervical or axillary lymphadenopathy Discharge Data Allergies Allergy/AdvReac Type Severity Reaction Status Date / Time chlorhexidine Allergy Intermediate RASH AND Verified 01/06/20 09:54 ITCHING latex Allergy Unknown RASH Verified 01/06/20 09:54 Consultations 01/06/20 11:36 ED Decision to Admit Stat 01/06/20 18:30 Consult Cardiology Routine Hospital Course (1) Pneumonia due to COVID-19 virus: Dexamethasone 6mg IV daily, responded well, no hypoxia all day, 92-94% on room air no need for Remdesivir or plasma will discharge home on several more days of dexamethasone to limit inflammation, cough suppressant instructed to get rest, stay well nourished and well hydrated, remain in quarantine for 7 days (2) Hypoxia: resolved quickly saturations 92-94% on room air the day of discharge (3) Paroxysmal A-fib: Increase metoprolol succinate 50 -> 100mg PO BID Continue flecainide 100mg BID Discontinue albuterol as this triggered his episodes overnight. discussed case with Dr Hoover recommend follow up with Dr. Chaves in 2 weeks (4) Hypertension: BP stable, slightly elevated on increased dose of Toprol (5) Obesity: (6) Elevated LFTs: minimal elevation, could be related to COVID 19 can follow as outpatient Total Time Total Time Spent Total Time Spent (In Minutes): 32 minutes Total Time Includes: Examination of the Patient, Discharge Planning, Medication Reconciliation and Communication With Other Providers (discussed with Dr. Nathan becerra) Discharge Plan Discharge Items Patient Disposition: Home - Self-Care Reason For Visit: COVID-19 PNA, HYPOXIA,PAROXYSMAL AFIB Discharge Diagnosis: COVID 19 pneumonia Atrial fibrillation with rapid response Condition on Discharge: Good Activity: Resume your previous activity Non-emergency contact: Primary Care Provider and Vehicle Service Attendant Call non-emergency contact if: you have any medication questions and your symptoms worsen Follow-up/Referrals: Goran Chaves MD [Physician] - 01/11/20 1:00 pm (two weeks TELE-HEALTH APPT WITH DR. CHAVES) Thomas Gillespie MD [Primary Care Provider] - 01/09/20 3:40 pm (one week TELE- HEALTH APPOINTMENT WITH DR. MANUEL) Diet: Regular Addtl Attending Provider Instructions: Medications: - TOPROL: dose increased to 100mg twice a day for rate control - DEXAMETHASONE: 6mg daily for 4 more days - CODEINE: take 10mL as needed every 6 hours for cough suppression Atrial fibrillation with RVR resolved after increased dose of Toprol discussed with Dr. Hoover, will continue Toprol 100mg twice a day on discharge continue Flecainide at 100mg twice a day recommend follow up with Dr. Chaves in two weeks COVID 19 pneumonia minimal oxygen requirement overnight, now no oxygen complete a few more days of Dexamethasone stay well hydrated and well nourished and get rest at home stay in quarantine until 01/12 Pending Studies at Discharge: No Stand-Alone Forms: [email or web address], Smoking Cessation Medications and DC Order Prescriptions: New metoprolol succinate 100 mg tablet extended release 24 hr 100 mg PO BID 30 Days Qty: 60 RF: 3 dexamethasone 2 mg tablet 6 mg PO DAILY 4 Days Qty: 12 RF: 0 codeine-guaifenesin [Guaiatussin AC] 10-100 mg/5 mL liquid 10 ml PO Q6H PRN (Reason: cough) Qty: 120 RF: 0 Continued flecainide 100 mg tablet 100 mg PO Q12H Qty: 180 RF: 3 apixaban 5 mg tablet 5 mg PO BID Qty: 180 RF: 3 Discontinued metoprolol succinate 100 mg tablet extended release 24 hr 50 mg PO BID RF: 0 Discharge Orders: Discharge Order (Routine); Ordered 01/07/20 Ordered By: Anirudh No Admission Data Admit Date/Time: 01/06/20 14:34 Attending Provider: Anirudh No Admit Provider: Dave Polk Primary Care Provider: Thomas Gillespie Other Providers: Luis Felipe Hoover ; Dave Polk Other Interventions: Discharge Summary Assessment (RN) Last Done: 01/07/20 15:17 Coding Level of Care Code D/C Day Management >30 mins Diagnoses Pneumonia due to COVID-19 virus U07.1; J12.89 Hypoxia R09.02 Paroxysmal A-fib I48.0 Hypertension I10 Obesity E66.9 Elevated LFTs R79.89
--- NOTE | 2020-01-07 17:49 | Cardiology Consultation ---
Date of Consultation January 07, 2020 Assessment & Plan (1) Paroxysmal A-fib: (2) Anticoagulant long-term use: (3) Hypertension: (4) Pneumonia due to COVID-19 virus: Although he still demonstrated frequent ectopy on ECG late yesterday, as well as ventricular ectopy on monitor overnight, he has not had recurrent atrial fibrillation over the past 24 hours on increased beta-eddie dose (metoprolol increased from 50 mg twice daily to 100 mg twice daily). Recommend continuing flecainide at current dose 100 mg every 12 hours. Spoke with patient and reassured him that atrial fibrillation in and of itself would be unlikely to cause major dyspnea at rest, but that he would need to restrict activity while he recovers from his Covid pneumonia. Because he is not bradycardic on the higher dose of beta-eddie, he could also take an additional 50 mg metoprolol as needed for any recurrent atrial fibrillation. He follows with Dr. Chaves routinely, upon discharge would have patient follow-up sometime in the next few weeks for further medication adjustment. History of Present Illness Reason for Consultation: Paroxysmal atrial fibrillation Requesting Physician: Dave Polk MD Attending Physician: Anirudh No DO History of Present Illness 59-year-old man with history of paroxysmal atrial fibrillation (flecainide/metoprolol/apixaban) who was recently diagnosed with COVID-19 infection and who has been experiencing increased episodes of paroxysmal atrial fibrillation. He has noted a variety of symptoms including, fever, chills, dysgeusia, nonproductive cough, wheezing, and dyspnea. However, he feels worse when he develops atrial fibrillation and experiences palpitations and markedly diminished exercise tolerance. His oxygen saturation was borderline in the emergency department, he was planning to go home but his saturation dropped and he was admitted. The patient's beta-eddie dosing was doubled from 50 mg twice daily to 100 mg twice daily and he was continued on flecainide 100 mg every 12 hours. His rhythm overnight showed sinus at 70 bpm with sporadic PVCs including periods of bigeminy. No recurrent atrial fibrillation overnight. Allergies Allergy/AdvReac Type Severity Reaction Status Date / Time chlorhexidine Allergy Intermediate RASH AND Verified 01/06/20 09:54 ITCHING latex Allergy Unknown RASH Verified 01/06/20 09:54 Home Medications Medication Instructions Recorded Confirmed Type apixaban 5 mg tablet 5 mg PO BID #180 tab 07/18/19 01/06/20 Rx flecainide 100 mg tablet 100 mg PO Q12H #180 tab 07/20/19 01/06/20 Rx codeine-guaifenesin [Guaiatussin 10 ml PO Q6H PRN #120 ml 01/07/20 Rx AC] dexamethasone 6 mg PO DAILY 4 Days #12 tab 01/07/20 Rx metoprolol succinate 100 mg PO BID 30 Days #60 tab 01/07/20 Rx Patient History Medical History Diverticular disease Hypertension Obesity Paroxysmal A-fib Rare documented episodes. [id number] is 1. Per cardio 09/14/17 "With rare episodes of atrial fibrillation and no ability to predict when they might recur I do not think I need to see him regularly, however if he has recurrence I have advised him to contact us and we may want to reevaluate things. 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 Afebrile overnight. Mildly hypertensive. Pulse 78 and regular. Skin: no ecchymoses or generalized lesions. HEENT: unremarkable. Neck: no JVD or carotid bruits. Lungs: Mildly decreased breath sounds with few scattered crackles but no wheezing. No accessory muscle use. Cardiac: regular rhythm, no murmur or gallop. Abdomen: benign. Extremities: no edema, pulses intact. Neurologic: normal affect, nonfocal. Results & Data ([facility]) Vital Signs (Past 12 Hours) Vital Signs Temp Pulse Resp BP Pulse Ox 01/07/20 11:27 97.9 F 69 17 144/90 H 93 01/07/20 07:49 98.8 F 68 20 148/94 H 95 01/07/20 07:12 98.4 F 69 18 148/87 H 94 01/07/20 03:50 98.1 F 65 20 135/90 96 Laboratory Results Normal CBC. Normal electrolytes, BUN 25, creatinine 0.86. Mildly elevated transaminases with AST 66, ALT 120. Troponin was negative x2. Diagnostic Findings Chest CT showed no pulmonary thromboembolic disease, there was evidence of pneumonitis on CT and chest x-ray. ECG on admission showed sinus rhythm with possible old inferior infarct and nonspecific anterior T wave flattening. QRS duration 114 ms with corrected QT of 0.45 seconds. Compared with 2017 study, sinus rhythm replaced A. fib and borderline criteria for inferior infarct and nonspecific T wave abnormalities were new. Subsequent ECG showed no ST changes or further evolution of T wave abnormalities. ECG yesterday afternoon did show aberrantly conducted PACs in a bigeminal pattern.
== END 2020-01-07 18:35 | disposition home or self-care (01) | DRG 177 ==
LOC: ED 08:53 → SUATTDRO 14:34 → EDINP 14:34 → 2S 17:54